=== PATIENT | female | born 1990 | race Caucasian/White ===

== ENCOUNTER 2018-02-04 00:12 | Emergency (ER) | payer MEDICAID ==
[~2018-02-04] VITALS: Ht 152.4 cm; Wt 44.5 kg
[2018-02-04 00:19] VITALS: Ht 152.4 cm; Wt 44.5 kg
[2018-02-04 00:39] VITALS: BP 108/71
== END 2018-02-04 00:39 | disposition left against medical advice (07) ==
LOC: ED 00:12
DX: Z53.21 Procedure and treatment not carried out due to patient leaving prior to being seen by health care provider (principal)